=== PATIENT | male | born 1940 | race Caucasian/White ===

== ENCOUNTER 2021-01-04 07:00 | Outpatient (CLI) | payer MEDICARE | END 2021-01-04 23:59 | disposition home or self-care (01) | LOC: COV 07:00 | PROVIDERS: ATTEND Ophthalmology | DX: Z01.812 Encounter for preprocedural laboratory examination (principal); H25.12 Age-related nuclear cataract, left eye; E11.9 Type 2 diabetes mellitus without complications; Z20.822 Contact with and (suspected) exposure to COVID-19 ==

== ENCOUNTER 2021-01-07 07:34 | Day surgery (SDC) | payer MEDICARE ==
[~2021-01-07 07:34] MED LIST: BRIMONIDINE 0.2% OPHTH DROPS 5 ML ONE; BSS/LIDOCAINE/EPINEPHRINE 1 ML SYRINGE ONE; EPINEPHrine 1 MG/ML AMP ONE; KETOROLAC 0.45% OPHTH DROPS ONE; PROPARACAINE 0.5% OPHTH DROPS 15 ML ONE; TIMOLOL 0.5% OPHTH DROPS ONE; TRIAMCIN/MOXIFLOX OPHTHALMIC 0.6 ML VIAL IO ONE; VANCOMYCIN OPHTHALMI 8MG/0.8ML 8 MG/0.8 ML SYRINGE IO ONE
[2021-01-07] MEDS ORDERED: LACTATED RINGERS 500 ML IV ONE (08:16)
--- NOTE | 2021-01-07 08:39 | ANESTHESIA ---
Pre-Anesthesia VS, & Labs - Diagnosis left nuclear sclerotic cataract - Procedure left cataract extraction with IOL Vital Signs: Temp Pulse Resp BP Pulse Ox 36 C L 102 H 16 164/95 H 97 01/07/21 07:52 01/07/21 07:52 01/07/21 07:52 01/07/21 07:52 01/07/21 07:52 Height: 5 ft 8 in Weight (kg): 96 kg Body Mass Index: 32.1 BMI Classification: Obese - NPO >8 hours Home Medications and Allergies Home Medications: Ambulatory Orders Aspirin [Aspirin EC] 81 mg PO DAILY 01/06/21 Lisinopril/Hydrochlorothiazide [Zestoretic 20-12.5 mg Tablet] 1 each PO DAILY 01/06/21 Aspirin [Aspirin EC] 81 mg PO DAILY 01/06/21 Lisinopril/Hydrochlorothiazide [Zestoretic 20-12.5 mg Tablet] 1 each PO DAILY 01/06/21 Allergies/Adverse Reactions: Allergies Allergy/AdvReac Type Severity Reaction Status Date / Time honey Allergy Respiratory Verified 01/06/21 15:23 doxycycline AdvReac Rash Verified 01/06/21 15:03 Anes History & Medical History - Anesthetic History Anesthesia Complications: reports: No previous complications - Medical History Cardiovascular: reports: Hypertension, Arrhythmia Pulmonary: reports: None Gastrointestinal: reports: GERD, Other Urinary: reports: Benign prostate hypertrophy Musculoskeletal: reports: Other Endocrine/Autoimmune: reports: Other Skin: reports: Rosacea - Surgical History General: reports: Cholecystectomy, Other Eyes Ears Nose Throat (EENT): reports: Other Cardiothoracic: Exam Dental: Partials Upper, Partials Lower Mouth Opening: Greater than 4 Fingerbreadths Mallampati classification: II Thyromental Distance: greater than 6 cm Respiratory: Lungs clear Cardiovascular: Other (a fib on bedside monitor) Plan Anesthesia Type: MAC Consent for Procedure(s) Verified and Reviewed: Yes Code Status: Attempt Resuscitation ASA classification: 2-Mild systemic disease Is this case an emergency?: No
[2021-01-07] MEDS ORDERED: MIDAZOLAM 2 MG/2 ML VIAL ONE (08:40)
[2021-01-07] MEDS ORDERED: EPINEPHrine 1 MG/ML AMP IR ONE (09:05)
[2021-01-07] MEDS ORDERED: BRIMONIDINE 0.2% OPHTH DROPS 5 ML OPTH ONE (09:05)
[2021-01-07] MEDS ORDERED: CHONDR SULF/HYALURONATE SYRINGE IO ONE (09:05)
[2021-01-07] MEDS ORDERED: TIMOLOL 0.5% OPHTH DROPS OPTH ONE (09:05)
[2021-01-07] MEDS ORDERED: BSS/LIDOCAINE/EPINEPHRINE 1 ML SYRINGE IO ONE (09:06)
[2021-01-07] MEDS ORDERED: PROPARACAINE 0.5% OPHTH DROPS 15 ML EACHEYE ONE (09:06)
[2021-01-07] MEDS ORDERED: TRIAMCIN/MOXIFLOX OPHTHALMIC 0.6 ML VIAL IO ONE (09:06)
[2021-01-07] MEDS ORDERED: VANCOMYCIN OPHTHALMI 8MG/0.8ML 8 MG/0.8 ML SYRINGE IO ONE (09:07)
--- NOTE | 2021-01-07 09:24 | ANESTHESIA POST OP EVALUATION ---
Anesthesia Post Eval - Post Anesthesia Eval Vitals: Last Vital Signs Temp 36 C L 01/07/21 07:52 Pulse 102 H 01/07/21 07:52 Resp 16 01/07/21 07:52 BP 164/95 H 01/07/21 07:52 Pulse Ox 97 01/07/21 07:52 CV Function Including HR & BP: Stable Pain Control: Satisfactory Nausea & Vomiting: Negative Mental Status: Patient Participates Respiratory Status: Airway Patent Hydration Status: Satisfactory Anesthesia Complications: None
[2021-01-07 09:40] VITALS: BP 123/83
--- NOTE | 2021-01-07 10:12 | OPERATIVE REPORT ---
DATE OF SERVICE: 01/07/2021 Physician: Royal Garcia MD PREOPERATIVE DIAGNOSIS: Visually significant cataract, left eye. This was his first cataract surger y. POSTOPERATIVE DIAGNOSIS: Visually significant cataract, left eye. This was his first cataract surge ry. PROCEDURE: Phacoemulsification with posterior chamber intraocular lens implant, left eye. SURGEON: Royal Garcia MD. ANESTHESIA: Monitored anesthesia care. COMPLICATIONS: None. OPERATIVE INDICATIONS: This is a 80-year-old man with progressive vision loss in the left eye due to 4+ nuclear sclerotic cataract. Best corrected visual acuity was 20/40 with glare to 20/70 in the le ft eye. Indications for surgery are overall decrease in vision, difficulty seeing words on a compute r screen, difficulty reading, difficulty seeing words, closed caption or game scores on TV, difficult y driving in low light or at night, difficulty driving at night because of headlights from other vehi cles, and difficulty with glare or bright lights in any situation. He was consented at length concer bonnie risks and benefits of cataract surgery, after which he expressed a desire to proceed with surger y. OPERATIVE PROCEDURE: The patient was taken into OR #3 and placed under monitored anesthesia care. A surgical timeout was conducted, confirming correct patient, correct procedure, and correct surgical site. He was given topical anesthesia and prepped and draped in usual sterile fashion. The eye was entered at the 6 and 3 o'clock positions. Intracameral Shugarcaine was injected into the anterior ch monisha followed by Viscoat. A continuous-tear curvilinear capsulorrhexis was performed. The nucleus was hydrodissected and phacoemulsified. The cortex was evacuated using automated infusion and aspira tion. Provisc was injected in the capsular bag and a 19.5 diopter intraocular lens inserted into the bag. Infusion and aspiration were used to evacuate the viscoelastic materials. The eye was inflate d to physiologic pressure using balanced salt solution and found to be watertight. Approximately 0.2 5 mL of a mixture of triamcinolone and moxifloxacin was injected transsclerally into the vitreous in the inferotemporal quadrant. An additional 0.55 mL of a mixture of triamcinolone, moxifloxacin, and vancomycin was injected subconjunctivally in the superior quadrant for infection and inflammation pro phylaxis. Wound integrity was checked with Weck-Danisha sponges. The patient was taken from the operati ng room in good condition and given postoperative instructions. TD: 01/07/2021 10:11
--- NOTE | 2021-01-07 10:15 | OPERATIVE REPORT ---
DATE OF SERVICE: 01/07/2021 Physician: Royal Garcia MD DUPLICATE DICTATION - canceling 01/07/21 veronica/JOSEPHINE PREOPERATIVE DIAGNOSIS: Visually significant cataract, left eye. This was his first cataract surgery. POSTOPERATIVE DIAGNOSIS: Visually significant cataract, left eye. This was his first cataract surgery. PROCEDURE: Phacoemulsification with posterior chamber intraocular lens implant, left eye. SURGEON: Royal Garcia MD ANESTHESIA: Monitored anesthesia care. COMPLICATIONS: None. OPERATIVE INDICATIONS: This is a 80-year-old man with progressive vision loss in the left eye due to 4+ nuclear sclerotic cataract. Best corrected visual acuity was 20/40 with glare to 20/70 in the left eye. Indications for surgery are overall decrease in vision, difficulty seeing words on a computer screen, difficulty reading, difficulty seeing words, closed caption or game scores on TV, difficulty driving in low light or at night, difficulty driving at night because of headlights from other vehicles, and difficulty with glare or bright lights in any situation. He was consented at length concerning risks and benefits of cataract surgery, after which he expressed a desire to proceed with surgery. OPERATIVE PROCEDURE: The patient was taken into OR #3 and placed under monitored anesthesia care. A surgical timeout was conducted, confirming correct patient, correct procedure, and correct surgical site. He was given topical anesthesia and prepped and draped in usual sterile fashion. The eye was entered at the 6 and 3 o'clock positions. Intracameral Shugarcaine was injected into the anterior chamber followed by Viscoat. A continuous-tear curvilinear capsulorrhexis was performed. The nucleus was hydrodissected and phacoemulsified. The cortex was evacuated using automated infusion and aspiration. Provisc was injected in the capsular bag and a 19.5 diopter intraocular lens inserted into the bag. Infusion and aspiration were used to evacuate the viscoelastic materials. The eye was inflated to physiologic pressure using balanced salt solution and found to be watertight. Approximately 0.25 mL of a mixture of triamcinolone and moxifloxacin was injected transsclerally into the vitreous in the inferotemporal quadrant. An additional 0.55 mL of a mixture of triamcinolone, moxifloxacin, and vancomycin was injected subconjunctivally in the superior quadrant for infection and inflammation prophylaxis. Wound integrity was checked with Weck-Danisha sponges. The patient was taken from the operating room in good condition and given postoperative instructions. TD: 01/07/2021 10:14 [facility]ITAL[facility]
--- NOTE | 2021-01-07 12:02 | CONSULTATION NOTE ---
Consultation Report: Patient here for cataract surgery and had incidental finding of new onset A fib/flutter. 12 Lead EKG done and confirmed by hospitalist on duty. Patient entirely asymptomatic and denies of ever having any cardiac issues in past. Patient's PCP is Dr. Luna whom he already has a appointment with in early january. Patient is rate controlled in the 80-90's and on 81mg ASA daily. I am having the EKG to his office and instructed the patient to continue on ASA, call Dr. Luna if he has any concerns and for chest pain, faint, heart racing or SOB to go to the emergency room.
== END 2021-01-07 07:35 | disposition home or self-care (01) ==
LOC: SDS 07:34
PROVIDERS: ATTEND Ophthalmology
DX: E11.36 Type 2 diabetes mellitus with diabetic cataract (principal); H25.12 Age-related nuclear cataract, left eye; I48.91 Unspecified atrial fibrillation; I48.92 Unspecified atrial flutter; E11.3299 Type 2 diabetes mellitus with mild nonproliferative diabetic retinopathy without macular edema, unspecified eye; I10 Essential (primary) hypertension; E66.9 Obesity, unspecified; Z68.32 Body mass index [BMI] 32.0-32.9, adult; N40.0 Benign prostatic hyperplasia without lower urinary tract symptoms; Z79.82 Long term (current) use of aspirin; Z79.899 Other long term (current) drug therapy
CPT/HCPCS: 66984; 93005; A9270; J3490; J7120

== ENCOUNTER 2021-02-12 11:00 | Outpatient (CLI) | payer MEDICARE | END 2021-02-12 23:59 | disposition home or self-care (01) | LOC: COV 11:00 | PROVIDERS: ATTEND Ophthalmology | DX: Z01.812 Encounter for preprocedural laboratory examination (principal); H25.811 Combined forms of age-related cataract, right eye; E11.9 Type 2 diabetes mellitus without complications; Z20.822 Contact with and (suspected) exposure to COVID-19 ==

== ENCOUNTER 2021-02-18 06:55 | Day surgery (SDC) | payer MEDICARE ==
[~2021-02-18 06:55] MED LIST changes: -BRIMONIDINE 0.2% OPHTH DROPS 5 ML ONE; -BSS/LIDOCAINE/EPINEPHRINE 1 ML SYRINGE ONE; -EPINEPHrine 1 MG/ML AMP ONE; -TIMOLOL 0.5% OPHTH DROPS ONE; -TRIAMCIN/MOXIFLOX OPHTHALMIC 0.6 ML VIAL IO ONE; -VANCOMYCIN OPHTHALMI 8MG/0.8ML 8 MG/0.8 ML SYRINGE IO ONE
[2021-02-18] MEDS ORDERED: LACTATED RINGERS 500 ML IV ONE ×2 (07:09→08:18)
[2021-02-18] MEDS ORDERED: CYCLOPENTOLATE 2% OPHTH DROPS 2 ML RIGHTEYE ONE (07:10)
[2021-02-18] MEDS ORDERED: PHENYLEPHRINE 2.5% OPHTH 2 ML DROPS RIGHTEYE ONE (07:10)
[2021-02-18] MEDS ORDERED: MIDAZOLAM 2 MG/2 ML VIAL ONE (07:29)
--- NOTE | 2021-02-18 07:36 | ANESTHESIA ---
Pre-Anesthesia VS, & Labs - Diagnosis right eye cataract - Procedure right CATIOL Vital Signs: Temp Pulse Resp BP Pulse Ox 36.1 C L 81 16 146/88 H 96 02/18/21 07:15 02/18/21 07:15 02/18/21 07:15 02/18/21 07:15 02/18/21 07:15 Height: 5 ft 10 in Weight (kg): 93.8 kg Body Mass Index: 29.7 BMI Classification: Overweight - NPO >8 hours - Lab Results Lab results reviewed: Yes Home Medications and Allergies Aspirin [Aspirin EC] 81 mg PO DAILY 01/06/21 Lisinopril/Hydrochlorothiazide [Zestoretic 20-12.5 mg Tablet] 1 each PO DAILY 01/06/21 Allergies/Adverse Reactions: Allergies Allergy/AdvReac Type Severity Reaction Status Date / Time honey Allergy Respiratory Verified 02/17/21 14:02 doxycycline AdvReac Rash Verified 02/17/21 14:02 Anes History & Medical History - Anesthetic History Anesthesia Complications: reports: No previous complications Family history of Anesthesia Complications: Denies Family history of Malignant Hyperthermia: Denies - Medical History Gastrointestinal: reports: Hiatal hernia, Cholelithiasis - Surgical History General: reports: Cholecystectomy, Hiatal hernia repair Eyes Ears Nose Throat (EENT): reports: Cataracts Exam General: Alert, Oriented x3, Cooperative, No acute distress Dental: WNL Mouth Openin Fingerbreadth Neck Mobility: Normal Mallampati classification: II Plan Anesthesia Type: MAC Consent for Procedure(s) Verified and Reviewed: Yes Code Status: Attempt Resuscitation ASA classification: 2-Mild systemic disease Is this case an emergency?: No
[2021-02-18] MEDS ORDERED: BRIMONIDINE 0.2% OPHTH DROPS 5 ML OPTH ONE (08:30)
[2021-02-18] MEDS ORDERED: EPINEPHrine 1 MG/ML AMP IR ONE (08:30)
[2021-02-18] MEDS ORDERED: VANCOMYCIN OPHTHALMI 8MG/0.8ML 8 MG/0.8 ML SYRINGE IO ONE (08:30)
[2021-02-18] MEDS ORDERED: TIMOLOL 0.5% OPHTH DROPS OPTH ONE (08:30)
[2021-02-18] MEDS ORDERED: BSS/LIDOCAINE/EPINEPHRINE 1 ML SYRINGE IO ONE (08:30)
[2021-02-18] MEDS ORDERED: TRIAMCIN/MOXIFLOX OPHTHALMIC 0.6 ML VIAL IO ONE (08:30)
[2021-02-18] MEDS ORDERED: PROPARACAINE 0.5% OPHTH DROPS 15 ML EACHEYE ONE (08:30)
[2021-02-18] MEDS ORDERED: CHONDR SULF/HYALURONATE SYRINGE IO ONE (08:30)
[2021-02-18 08:34] VITALS: BP 134/70
--- NOTE | 2021-02-18 09:52 | OPERATIVE REPORT ---
Operative Report - Other Other Information/Narrative: Date of Surgery: 02/18/21 Preop Dx: Visually significant cataract right eye. Cataract surgery was performed in the left eye on 01/07/2021. Postop Dx: Same Procedure: Phacoemulsification with posterior chamber intraocular lens implant right eye Surgeon: Dr. Royal Garcia Anesthesia: Monitored anesthesia care Complications: None Operative Indications: This is a 80-year-old M with progressive vision loss in the right eye due to 4+ nuclear sclerotic cataract. Best corrected visual acuity was 20/40 with glare to 20/70 vision in the right eye. Indications for surgery were: - Overall decrease in vision - Difficulty seeing words on a computer screen - Difficulty reading - Difficulty seeing words, closed captions, or game scores on TV - Difficulty driving at night because of headlights from other vehicles - Difficulty with glare or bright lights in any situation The patient was consented at length concerning the risks and benefits of cataract surgery after which the patient expressed a desire to proceed with surgery. Operative Procedure: The patient was taken into OR#3 and placed under monitored anesthesia care. A surgical time-out was conducted confirming correct patient, correct procedure, and correct surgical site. The patient was given topical anesthesia and then prepped and draped in the usual sterile fashion. The eye was entered at the 6 and 3 oclock positions. Intracameral Shugarcaine was injected into the anterior chamber followed by a dispersive viscoelastic. A continuous-tear curvilinear capsulorhexis was performed. The nucleus was hydrodissected and phacoemulsified. The cortex was evacuated using automated infusion and aspiration. A cohesive viscoelastic was injected into the capsular bag and a 20.5 diopter intraocular lens was inserted into the bag. Infusion and aspiration were used to evacuate the viscoelastic materials from the eye. The wounds were hydrated and the eye inflated to physiologic pressure using balanced salt solution. Approximately 0.25ml of a mixture of triamcinolone and moxifloxacin was injected trans-sclerally into the vitreous in the inferotemporal quadrant using a 30 gauge cannula. An additional 0.50ml of a mixture of triamcinolone, moxifloxacin, and vancomycin was injected subconjunctivally in the superior quadrant for infection and inflammation prophylaxis. Wound integrity was checked with Weck-Danisha sponges. The patient was taken from the operating room in good condition and given post-op instructions.
--- NOTE | 2021-02-18 13:33 | ANESTHESIA POST OP EVALUATION ---
Anesthesia Post Eval - Post Anesthesia Eval Vitals: Last Vital Signs Temp 36.6 C 02/18/21 08:17 Pulse 98 02/18/21 08:33 Resp 18 02/18/21 08:33 BP 134/70 H 02/18/21 08:33 Pulse Ox 93 02/18/21 08:33 CV Function Including HR & BP: Stable Pain Control: Satisfactory Nausea & Vomiting: Negative Mental Status: Baseline Respiratory Status: Airway Patent Hydration Status: Satisfactory Anesthesia Complications: None
== END 2021-02-18 06:56 | disposition home or self-care (01) ==
LOC: SDS 06:55
PROVIDERS: ATTEND Ophthalmology
DX: E11.36 Type 2 diabetes mellitus with diabetic cataract (principal); H25.11 Age-related nuclear cataract, right eye; E11.3299 Type 2 diabetes mellitus with mild nonproliferative diabetic retinopathy without macular edema, unspecified eye; E66.3 Overweight; Z68.29 Body mass index [BMI] 29.0-29.9, adult; Z98.42 Cataract extraction status, left eye
CPT/HCPCS: 66984; A9270; J3490; J7120

== ENCOUNTER 2023-05-22 07:14 | Outpatient (CLI) | payer MEDICARE | END 2023-05-22 23:59 | disposition critical access hospital (66) | LOC: EMS 07:14 | DX: R55 Syncope and collapse (principal); I48.91 Unspecified atrial fibrillation; I44.1 Atrioventricular block, second degree | CPT/HCPCS: A0425; A0427 ==

== ENCOUNTER 2023-05-22 07:40 | Emergency (ER) | payer MEDICARE ==
[2023-05-22] MEDS ORDERED: SODIUM CHLORIDE 0.9% 500 ML IV STA (08:01)
[2023-05-22] MEDS ORDERED: MAG HYDROX/AL HYDROX/SIMETH 30 ML UDC PO STA (08:01)
--- NOTE | 2023-05-22 08:02 | ED Physician Documentation ---
PD HPI SYNCOPE - Stated complaint Stated Complaint: SYNCOPE - Chief complaint Chief Complaint: Neuro - History obtained from History obtained from: Patient, EMS - History of Present Illness Witnessed: Witnessed (by his ) Timing - onset: How many minutes ago (30-40) Duration: Seconds Preceding symptoms: Light headed, Generalized weakness. No: Headache, Chest pain, Nausea / vomiting Associated symptoms: Other (the patient was stung by bee in right shoulder and had local redness, swelling. He was feeling okay otherwise. About 40 minutes after the sting, his looking at area and noted stinger still in. She pulled it out with tweezers and pt got lightheaded and near syncope minute or so later. Sat down.). No: Headache, Chest pain, Nausea / vomiting Contributing factors: Noxious stimulae (had been stung by bee prior but then onset of lightheaded just after removed the stinger from shoulder. Feeling okay by time of EMS arrival, with normal vitals by Medics.) Injury occurred: No: Fell Similar symptoms before: Has not had sx before Recently seen: Not recently seen Review of Systems Constitutional: denies: Fever, Chills Nose: denies: Rhinorrhea / runny nose, Congestion Throat: denies: Sore throat Cardiac: denies: Chest pain / pressure, Palpitations Respiratory: denies: Dyspnea, Cough GI: denies: Abdominal Pain, Nausea, Vomiting PD PAST MEDICAL HISTORY - Present Medications Home Medications: Ambulatory Orders Medication Instructions Recorded Confirmed Aspirin [Aspirin EC] 81 mg PO DAILY 01/06/21 05/22/23 Lisinopril/Hydrochlorothiazide 1 each PO DAILY 01/06/21 05/22/23 [Zestoretic 20-12.5 mg Tablet] EPINEPHrine [Epinephrine] 0.3 mg IJ ONCE PRN #1 each 05/22/23 metFORMIN [Glucophage] 500 mg PO BIDWM 05/22/23 05/22/23 - Allergies Allergies/Adverse Reactions: Allergies Allergy/AdvReac Type Severity Reaction Status Date / Time honey Allergy Respiratory Verified 05/22/23 07:47 doxycycline AdvReac Rash Verified 05/22/23 07:47 blood pressure meds AdvReac Unknown Uncoded 05/22/23 07:47 PD ED PE NORMAL - Vitals Vital signs reviewed: Yes - General General: Alert and oriented X 3, No acute distress, Well developed/nourished - Neck Neck: Supple, no meningeal sign, No adenopathy - Cardiac Cardiac: RRR, No murmur - Respiratory Respiratory: Clear bilaterally - Abdomen Abdomen: Soft, Non tender - Derm Derm: Normal color, Warm and dry, Other (right scapular area with patch of redness with mild swelling c/w local bee sting reaction. ) - Extremities Extremities: Normal ROM s pain Results - Vitals Vitals: Vital Signs - 24 hr 05/22/23 05/22/23 05/22/23 07:47 08:09 09:39 Temperature 36.2 C L Heart Rate 84 80 87 Respiratory 18 12 18 Rate Blood Pressure 138/90 H 136/89 H 136/84 H O2 Saturation 100 100 99 Oxygen O2 Source Room air - Labs Labs: Laboratory Tests 05/22/23 05/22/23 08:11 08:11 WBC 10.5 RBC 4.82 Hgb 14.2 Hct 44.2 MCV 91.7 MCH 29.5 MCHC 32.1 RDW 13.2 Plt Count 301 MPV 11.8 H Neut # (Auto) 8.0 H Lymph # (Auto) 1.5 Andrew # (Auto) 0.7 Eos # (Auto) 0.2 Baso # (Auto) 0.0 Absolute Nucleated RBC 0.00 Nucleated RBC % 0.0 Sodium 138 Potassium 3.5 Chloride 103 Carbon Dioxide 27 Anion Gap 8.0 BUN 11 Creatinine 0.9 Estimated GFR (MDRD) 81 L Glucose 145 H Calcium 9.4 Total Bilirubin 0.8 AST 10 ALT 8 L Alkaline Phosphatase 97 Troponin I High Sens 4.7 Total Protein 7.2 Albumin 3.8 Globulin 3.4 Albumin/Globulin Ratio 1.1 Lipase 4 L Vitamin B12 4699 H PD Medical Decision Making - ED course Complexity details: considered differential (patient with near syncope after bee sting. It was delayed and was after pulled stinger. Consider extra venom when pinched the stinger, versus vasovagal from the activity separate from vemon reaction. He is well here without recurring symptoms. ), d/w patient, d/w family () ED course: consider vasovagal from activity/bee sting as did not have other general hives/itching, dyspnea, etc. However, cannot exlcude some anaphylactic response. Will give Rx for epipen in case. Coached pt on giving short time fater future sting to see if any general symptoms but to be on the ready to give epi self injection if needed. Departure - Departure Disposition: 01 Home, Self Care Clinical Impression: Bee sting reaction, Near syncope Condition: Stable Record reviewed to determine appropriate education?: Yes Instructions: ED Bite Insect Follow-Up: Enrique Luna MD [Primary Care Provider] - Prescriptions: EPINEPHrine [Epinephrine] 0.3 mg IJ ONCE PRN #1 each PRN Reason: Anaphylaxis Comments: You do not seem to have the generalized degree of symptoms with swelling of the lips tongue or throat, hives, generalized itching. The local symptoms at the shoulder around the area of the sting would still be local venom effect as opposed to a generalized allergic reaction. The lightheadedness and near fainting does not necessarily signify an bakari phylactic/general allergic reaction to the bee sting but may have been a transient drop in blood pressure for other reasons. However the concern would be whether to have available medication to take in case you have a worse reaction to a bee sting in the near future. This would be an epinephrine self injector kit. 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 If you get stung and started having generalized symptoms, he would want to do that self injector along with taking some Benadryl and drinking fluids and coming in for evaluation. Forms: PCP List Discharge Date/Time: 05/22/23 09:39
[2023-05-22 08:15] LABS: BASOPHILS % (AUTO) 0.4 %; EOSINOPHILS # (AUTO) 0.2 10^3/uL (0.0-0.7); EOSINOPHILS % (AUTO) 2.1 %; HCT - HEMATOCRIT 44.2 % (42.0-52.0); HGB - HEMOGLOBIN 14.2 g/dL (14.0-18.0); LYMPHOCYTES # (AUTO) 1.5 10^3/uL (1.5-3.5); MEAN CORPUSCULAR HEMOGLOBIN 29.5 pg (27.0-31.0); MEAN CORPUSCULAR HGB CONC 32.1 g/dL (32.0-36.0); MEAN CORPUSCULAR VOLUME 91.7 fL (80.0-94.0); MEAN PLATELET VOLUME 11.8 fL (7.4-11.4); MONOCYTES # (AUTO) 0.7 10^3/uL (0.0-1.0); MONOCYTES % (AUTO) 6.8 %; NEUTROPHILS % (AUTO) 76.4 %; PLT - PLATELET COUNT 301 10^3/uL (130-450); RED BLOOD COUNT 4.82 10^6/uL (4.70-6.10); RED CELL DISTRIBUTION WIDTH 13.2 % (12.0-15.0); WHITE BLOOD COUNT 10.5 x10^3/uL (4.8-10.8)
[2023-05-22 08:32] LABS: ALBUMIN 3.8 g/dL (3.2-5.5); ALBUMIN/GLOBULIN RATIO 1.1 (1.0-2.2); BILIRUBIN,TOTAL 0.8 mg/dL (0.2-1.0); CALCIUM 9.4 mg/dL (8.5-10.3); CREATININE 0.9 mg/dL (0.6-1.3); POTASSIUM 3.5 mmol/L (3.5-4.5); TOTAL PROTEIN 7.2 g/dL (6.4-8.9)
[2023-05-22 08:36] LABS: TROPONIN I HIGH SENSITIVITY 4.7 ng/L (2.3-19.7)
[2023-05-22 09:47] VITALS: BP 136/84; O2SAT 99
== END 2023-05-22 09:39 | disposition home or self-care (01) ==
LOC: EDUNIT# → ED 07:40
DX: T63.441A Toxic effect of venom of bees, accidental (unintentional), initial encounter (principal); R55 Syncope and collapse; Z79.82 Long term (current) use of aspirin; Z79.899 Other long term (current) drug therapy; Z79.84 Long term (current) use of oral hypoglycemic drugs
CPT/HCPCS: 36415; 80053; 82607; 83690; 84484; 85025; 93005; 99283; 99284; A9270